=== PATIENT | male | born 1940 | race Caucasian/White ===

== ENCOUNTER 2019-12-17 23:24 | Inpatient (IN) ==
[2019-12-18] MEDS ORDERED: Naloxone 0.4 MG/ML INJ IVP PRN (01:36)
[2019-12-18] MEDS ORDERED: 0.9 % Sodium Chloride 1,000 ML IVC SCH ×2 (01:45→08:06)
[2019-12-18] MEDS ORDERED: *HR* Dextrose 50 % in Water (Vial) 50 ML VIAL IVP PRN (03:03)
[2019-12-18] MEDS ORDERED: D5% in Water 1,000 ML IVC PRN (03:03)
[2019-12-18] MEDS ORDERED: Dextrose Gel 15 GM/37.5 ML TUBE PO PRN ×2 (03:03)
[2019-12-18] MEDS ORDERED: Ondansetron 4 MG/2 ML VIAL IVP PRN (03:58)
[2019-12-18 05:54] LABS: Basophils % 0.2 %; Eosinophils % 0.3 %; Hematocrit 37.4 % (37.5-50.1); Lymphocytes # 1.3 K/mcL (0.6-4.6); Lymphocytes % 13.1 %; Mean Corpuscular HGB Conc 32.1 g/dL (31.6-35.5); Mean Corpuscular Hemoglobin 29.1 pg (28.0-33.3); Mean Corpuscular Volume 90.8 fL (83.0-100.0); Mean Platelet Volume 11.4 fL (9.4-12.4); Monocytes # 0.7 K/mcL (0.0-1.3); Monocytes % 6.5 %; Neutrophils # 7.9 K/mcL (1.6-8.9); Platelet Count 186 K/mcL (140-400); Red Blood Count 4.12 M/mcL (4.19-5.50); Red Cell Distribution Width 13.8 % (11.5-14.5); Segmented Neutrophils % 78.9 %
[2019-12-18 06:05] LABS: VBG Ionized Calcium 0.69 mmol/L (1.15-1.35)
[2019-12-18 06:08] LABS: INR 1.5; Prothrombin Time 16.9 Seconds (9.4-12.1)
[2019-12-18 06:10] LABS: Activated Partial Thrombo Time 28.5 Seconds (26.0-36.0)
[2019-12-18 06:21] LABS: Alanine Aminotransferase 14 Units/L (7-52); Albumin 3.7 g/dL (3.5-5.7); Albumin/Globulin Ratio 1.5 (1.1-2.2); Alkaline Phosphatase 66 Units/L (34-104); Aspartate Amino Transferase 18 Units/L (13-39); BUN/Creatinine Ratio 13 (6-26); Bilirubin,Total 0.5 mg/dL (0.3-1.0); Blood Urea Nitrogen 20 mg/dL (8-23); Calcium 5.9 mg/dL (8.6-10.3); Carbon Dioxide 26 mEq/L (23-29); Chloride 101 mEq/L (98-107); Globulin 2.5 g/dL (2.4-3.5); Glucose 138 mg/dL (70-105); Osmolality,Calculated 295 (280-300); Phosphorous 3.4 mg/dL (2.7-4.5); Potassium 3.1 mEq/L (3.5-5.1); Sodium 140 mEq/L (136-145); Total Protein 6.2 g/dL (6.4-8.9); eGFR For African Americans 55 (> 60); eGFR For Non-African Americans 45 (> 60)
[2019-12-18] MEDS ORDERED: Potassium Chloride Elixir 20 MEQ/15 ML UDC PO ONE (06:29)
[2019-12-18] MEDS ORDERED: *HR* Amiodarone 200 MG TABLET PO SCH (09:00)
[2019-12-18] MEDS: Metoprolol XL (24 HR) Succ 50 MG TAB.ER.24H PO SCH (09:05)
[2019-12-18] MEDS: Aspirin 81 MG TAB.CHEW PO SCH (09:08)
[2019-12-18] MEDS: Insulin LISPRO 300 UNITS/3 ML VIAL SQ SCH ×3 (09:09→17:19)
[2019-12-18] MEDS: Verapamil ER (24 HR) 180 MG TABLET.ER PO SCH (09:16)
[2019-12-18] MEDS: Calcium Gluconate 1gm/50mL 1 GM/50 ML BAG IVPB SCH ×4 (10:29→15:19)
[2019-12-18 11:23] LABS: Magnesium < 0.5 mg/dL (1.6-2.6)
[2019-12-18] MEDS ORDERED: Potassium Chloride Elixir 20 MEQ/15 ML UDC PO SCH (11:45)
[2019-12-18] MEDS: *HR* Rivaroxaban 10 MG TABLET PO SCH (17:19)
[2019-12-18 19:07] LABS: Calcium 7.1 mg/dL (8.6-10.3); Potassium 3.8 mEq/L (3.5-5.1)
[2019-12-19] MEDS: Calcium Gluconate 1gm/50mL 1 GM/50 ML BAG IVPB SCH ×2 (04:32→05:26)
[2019-12-19 06:17] LABS: Basophils % 0.2 %; Eosinophils # 0.1 K/mcL (0.0-0.6); Eosinophils % 1.2 %; Hematocrit 37.8 % (37.5-50.1); Hemoglobin 11.9 g/dL (12.9-16.9); Immature Granulocytes % 1.6 % (0-4); Lymphocytes # 1.3 K/mcL (0.6-4.6); Lymphocytes % 12.5 %; Mean Corpuscular HGB Conc 31.5 g/dL (31.6-35.5); Mean Corpuscular Hemoglobin 28.9 pg (28.0-33.3); Mean Corpuscular Volume 91.7 fL (83.0-100.0); Mean Platelet Volume 11.9 fL (9.4-12.4); Monocytes # 0.7 K/mcL (0.0-1.3); Monocytes % 6.7 %; Neutrophils # 8.1 K/mcL (1.6-8.9); Platelet Count 186 K/mcL (140-400); Red Blood Count 4.12 M/mcL (4.19-5.50); Red Cell Distribution Width 13.8 % (11.5-14.5); Segmented Neutrophils % 77.8 %; White Blood Count 10.4 K/mcL (4.3-11.1)
[2019-12-19 06:40] LABS: Calcium 6.9 mg/dL (8.6-10.3); Magnesium 1.6 mg/dL (1.6-2.6); Phosphorous 3.1 mg/dL (2.7-4.5)
[2019-12-19] MEDS: Verapamil ER (24 HR) 180 MG TABLET.ER PO SCH (07:46)
[2019-12-19] MEDS: Aspirin 81 MG TAB.CHEW PO SCH (07:46)
[2019-12-19] MEDS: Insulin LISPRO 300 UNITS/3 ML VIAL SQ SCH ×3 (07:46→17:28)
[2019-12-19] MEDS: Metoprolol XL (24 HR) Succ 50 MG TAB.ER.24H PO SCH (07:46)
[2019-12-19] MEDS: Magnesium Oxide 400 MG TABLET PO SCH (09:14)
[2019-12-19] MEDS ORDERED: GuaiFENesin/Pseudophedrine TABLET PO PRN (10:18)
[2019-12-19] MEDS: Ipratropium/Albuterol Neb 3 ML IH SCH ×4 (11:14→23:28)
[2019-12-19] MEDS: Doxycycline 100 MG CAPSULE PO SCH ×2 (11:24→20:48)
[2019-12-19] MEDS: Famotidine 20 MG TABLET PO SCH ×2 (11:24→17:28)
[2019-12-19] MEDS: cefTRIAXone 1,000 MG in Water for inj. (sterile) 10 ML IVP SCH (11:24)
[2019-12-19] MEDS: Spironolactone 25 MG TABLET PO SCH (11:24)
[2019-12-19] MEDS: Furosemide 40 MG TABLET PO SCH ×2 (15:26→20:49)
[2019-12-19] MEDS: *HR* Rivaroxaban 10 MG TABLET PO SCH (17:28)
[2019-12-20 03:22] LABS: Basophils % 0.4 %; Eosinophils # 0.1 K/mcL (0.0-0.6); Eosinophils % 0.9 %; Hematocrit 36.5 % (37.5-50.1); Hemoglobin 11.5 g/dL (12.9-16.9); Immature Granulocytes % 2.1 % (0-4); Lymphocytes % 9.1 %; Mean Corpuscular HGB Conc 31.5 g/dL (31.6-35.5); Mean Corpuscular Hemoglobin 28.7 pg (28.0-33.3); Mean Platelet Volume 11.3 fL (9.4-12.4); Monocytes # 0.9 K/mcL (0.0-1.3); Monocytes % 8.2 %; Platelet Count 182 K/mcL (140-400); Red Blood Count 4.01 M/mcL (4.19-5.50); Red Cell Distribution Width 13.7 % (11.5-14.5); Segmented Neutrophils % 79.3 %; White Blood Count 11.4 K/mcL (4.3-11.1)
[2019-12-20 03:39] LABS: Calcium 7.7 mg/dL (8.6-10.3); Magnesium 1.6 mg/dL (1.6-2.6); Phosphorous 2.2 mg/dL (2.7-4.5); Potassium 3.9 mEq/L (3.5-5.1)
[2019-12-20] MEDS: Ipratropium/Albuterol Neb 3 ML IH SCH ×6 (03:45→20:47)
[2019-12-20] MEDS: Verapamil ER (24 HR) 180 MG TABLET.ER PO SCH (07:32)
[2019-12-20] MEDS: Furosemide 40 MG TABLET PO SCH ×3 (07:33→20:07)
[2019-12-20] MEDS: Doxycycline 100 MG CAPSULE PO SCH ×2 (07:33→20:07)
[2019-12-20] MEDS: Spironolactone 25 MG TABLET PO SCH (07:33)
[2019-12-20] MEDS: Magnesium Oxide 400 MG TABLET PO SCH (07:33)
[2019-12-20] MEDS: Aspirin 81 MG TAB.CHEW PO SCH (07:33)
[2019-12-20] MEDS: Metoprolol XL (24 HR) Succ 50 MG TAB.ER.24H PO SCH (07:33)
[2019-12-20] MEDS: Famotidine 20 MG TABLET PO SCH ×2 (07:33→16:14)
[2019-12-20] MEDS: cefTRIAXone 1,000 MG in Water for inj. (sterile) 10 ML IVP SCH (07:34)
[2019-12-20] MEDS: Insulin LISPRO 300 UNITS/3 ML VIAL SQ SCH ×3 (07:35→16:12)
[2019-12-20 15:13] LABS: Adenovirus Not Detected (Not Detect); Bordetella Pertussis Not Detected (Not Detect); Chlamydophila pneumoniae Not Detected (Not Detect); Coronavirus 229E Not Detected (Not Detect); Coronavirus HKU1 Not Detected (Not Detect); Coronavirus NL63 Not Detected (Not Detect); Coronavirus OC43 Not Detected (Not Detect); Human Metapneumovirus Not Detected (Not Detect); Human Rhinovirus/Enterovirus Not Detected (Not Detect); Influenza A Subtype 2009 H1 Not Detected (Not Detect); Influenza B Not Detected (Not Detect); Mycoplasma pneumoniae Not Detected (Not Detect); Parainfluenza Virus 1 Not Detected (Not Detect); Parainfluenza Virus 2 Not Detected (Not Detect); Parainfluenza Virus 3 Not Detected (Not Detect); Parainfluenza Virus 4 Not Detected (Not Detect); Respiratory Syncytial Virus Not Detected (Not Detect); SARS-CoV-2 Not Detected (Not Detect)
[2019-12-20] MEDS: *HR* Rivaroxaban 10 MG TABLET PO SCH (16:11)
[2019-12-21] MEDS: Ipratropium/Albuterol Neb 3 ML IH SCH ×4 (03:49→16:03)
[2019-12-21 06:59] LABS: Basophils # 0.1 K/mcL (0.0-0.2); Basophils % 0.5 %; Eosinophils # 0.1 K/mcL (0.0-0.6); Eosinophils % 1.2 %; Hematocrit 37.7 % (37.5-50.1); Hemoglobin 11.6 g/dL (12.9-16.9); Immature Granulocytes % 1.7 % (0-4); Lymphocytes # 0.9 K/mcL (0.6-4.6); Lymphocytes % 9.5 %; Mean Corpuscular HGB Conc 30.8 g/dL (31.6-35.5); Mean Corpuscular Hemoglobin 28.6 pg (28.0-33.3); Mean Corpuscular Volume 92.9 fL (83.0-100.0); Mean Platelet Volume 11.5 fL (9.4-12.4); Monocytes % 9.8 %; Neutrophils # 7.6 K/mcL (1.6-8.9); Platelet Count 166 K/mcL (140-400); Red Blood Count 4.06 M/mcL (4.19-5.50); Red Cell Distribution Width 14.2 % (11.5-14.5); Segmented Neutrophils % 77.3 %; White Blood Count 9.8 K/mcL (4.3-11.1)
[2019-12-21 07:21] LABS: BUN/Creatinine Ratio 16 (6-26); Blood Urea Nitrogen 22 mg/dL (8-23); Calcium 8.5 mg/dL (8.6-10.3); Carbon Dioxide 24 mEq/L (23-29); Chloride 100 mEq/L (98-107); Glucose 148 mg/dL (70-105); Magnesium 1.9 mg/dL (1.6-2.6); Osmolality,Calculated 284 (280-300); Phosphorous 2.2 mg/dL (2.7-4.5); Potassium 3.9 mEq/L (3.5-5.1); Sodium 134 mEq/L (136-145); eGFR For African Americans > 60 (> 60); eGFR For Non-African Americans 52 (> 60)
[2019-12-21] MEDS: Insulin LISPRO 300 UNITS/3 ML VIAL SQ SCH ×2 (08:03→12:49)
[2019-12-21] MEDS: cefTRIAXone 1,000 MG in Water for inj. (sterile) 10 ML IVP SCH (08:03)
[2019-12-21] MEDS: Doxycycline 100 MG CAPSULE PO SCH (08:04)
[2019-12-21] MEDS: Famotidine 20 MG TABLET PO SCH ×2 (08:04→15:34)
[2019-12-21] MEDS: Furosemide 40 MG TABLET PO SCH ×2 (08:04→15:33)
[2019-12-21] MEDS: Verapamil ER (24 HR) 180 MG TABLET.ER PO SCH (08:04)
[2019-12-21] MEDS: Metoprolol XL (24 HR) Succ 50 MG TAB.ER.24H PO SCH (08:04)
[2019-12-21] MEDS: Spironolactone 25 MG TABLET PO SCH (08:04)
[2019-12-21] MEDS: Aspirin 81 MG TAB.CHEW PO SCH (08:04)
[2019-12-21] MEDS: Magnesium Oxide 400 MG TABLET PO SCH (08:04)
[2019-12-21] MEDS ORDERED: FLU Vac QV 20-21 (6Month+)/PF 0.5 ML SYRINGE IM ONE (09:16)
[2019-12-21 10:38] VITALS: BP 115/71
[2019-12-21] MEDS: *HR* Rivaroxaban 10 MG TABLET PO SCH (15:33)
== END 2019-12-21 17:21 | DRG 391 ==
LOC: 3ANU → SUATTDRO 12-18 14:35
PROVIDERS: ADMIT Student in an Organized Health Care Education/Training Program; ATTEND Internal Medicine

== ENCOUNTER 2020-12-31 16:54 | Inpatient (IN) ==
[2020-12-31] MEDS ORDERED: Naloxone 0.4 MG/ML INJ IVP PRN (19:47)
[2020-12-31] MEDS ORDERED: Ondansetron 4 MG/2 ML VIAL IVP PRN (19:47)
[2020-12-31] MEDS ORDERED: MOM Conc 10 ML UD.LIQ PO PRN (19:47)
[2020-12-31] MEDS ORDERED: Furosemide 40 MG/4 ML VIAL IVP SCH (22:15)
[2020-12-31] MEDS ORDERED: Perflutren Lipid Microsphere 1.3 ML in 0.9 % Sodium Chloride 8.7 ML IVP PRN (22:17)
[2020-12-31] MEDS ORDERED: Ipratropium/Albuterol Neb 3 ML IH PRN (22:17)
[2020-12-31] MEDS ORDERED: *HR* Heparin 5,000 UNIT/ML VIAL IVP ONE (22:21)
[2020-12-31] MEDS ORDERED: *HR* Heparin 5,000 UNIT/ML VIAL IVP PRN ×2 (22:21)
[2020-12-31] MEDS ORDERED: Heparin 25,000UNIT/250ML 1/2NS 25,000 UNIT/250 ML IV.SOLN IVC SCH (22:30)
[2020-12-31] MEDS ORDERED: *HR* Dextrose 50 % in Water (Syg) 50 ML SYRINGE IVP PRN (22:49)
[2020-12-31] MEDS ORDERED: D5% in Water 1,000 ML IVC PRN (22:49)
[2020-12-31] MEDS ORDERED: Dextrose Gel 15 GM/37.5 ML TUBE PO PRN ×2 (22:49)
[2020-12-31] MEDS ORDERED: Heparin 25,000 UNIT/250 ML 25,000 UNIT/250 ML IV.SOLN IVC SCH (23:00)
[2020-12-31] MEDS ORDERED: *HR* Metoprolol 5 MG/5 ML VIAL IVP ONE ×2 (23:10→23:11)
[2021-01-01] MEDS: Nystatin Cream 15 GM TUBE TP SCH ×3 (01:08→19:45)
[2021-01-01] MEDS ORDERED: *HR* Metoprolol 5 MG/5 ML VIAL IVP ONE (01:09)
[2021-01-01] MEDS: *HR* Metoprolol 5 MG/5 ML VIAL IVP PRN (02:22)
[2021-01-01 02:46] LABS: Bilirubin,Urine Negative (Negative); Blood,Urine Trace (Negative); Clarity,Urine Clear (Clear); Color,Urine Colorless (Yellow); Glucose,Urine (UA) >=1000 mg/dL (Normal); Ketones,Urine Negative (Negative); Leukocyte Esterase,Urine Large (Negative); Nitrite,Urine Negative (Negative); Protein,Urine Trace mg/dL (Neg-Trace); RBC,Urine 0-3 per hpf (0-3); Specific Gravity,Urine 1.016 (1.010-1.025); Urobilinogen,Urine Normal (Normal); WBC,Urine TNTC per hpf (0-3)
[2021-01-01] MEDS ORDERED: 0.9 % Sodium Chloride 500 ML IVC ONE (03:21)
[2021-01-01] MEDS: DilTIAZem 50 MG/50 ML IV.SOLN IVC SCH (04:36)
[2021-01-01] MEDS ORDERED: 0.9 % Sodium Chloride 1,000 ML IVC SCH (05:30)
[2021-01-01 07:05] LABS: Hematocrit 36.9 % (37.5-50.1); Hemoglobin 10.9 g/dL (12.9-16.9); Mean Corpuscular HGB Conc 29.5 g/dL (31.6-35.5); Mean Corpuscular Hemoglobin 23.3 pg (28.0-33.3); Mean Corpuscular Volume 78.8 fL (83.0-100.0); Mean Platelet Volume 10.7 fL (9.4-12.4); Platelet Count 260 K/mcL (140-400); Red Blood Count 4.68 M/mcL (4.19-5.50); Red Cell Distribution Width 16.7 % (11.5-14.5); White Blood Count 11.1 K/mcL (4.3-11.1)
[2021-01-01 07:27] LABS: Calcium 8.6 mg/dL (8.6-10.3); Magnesium 2.1 mg/dL (1.6-2.6); Phosphorous 3.5 mg/dL (2.7-4.5); Potassium 3.7 mEq/L (3.5-5.1)
[2021-01-01] MEDS: Insulin LISPRO 300 UNITS/3 ML VIAL SUBQ SCH ×3 (09:42→16:51)
[2021-01-01] MEDS: Aspirin 81 MG TAB.CHEW PO SCH (09:42)
[2021-01-01] MEDS ORDERED: *HR* Rivaroxaban 10 MG TABLET PO ONE (12:15)
[2021-01-01] MEDS: Metoprolol XL (24 HR) Succ 50 MG TAB.ER.24H PO SCH ×2 (12:34→19:44)
[2021-01-01] MEDS: Levalbuterol Neb 0.63 MG/3 ML IH SCH ×2 (16:16→19:59)
[2021-01-02] MEDS: DilTIAZem 50 MG/50 ML IV.SOLN IVC SCH ×2 (00:37→05:54)
[2021-01-02] MEDS: *HR* Metoprolol 5 MG/5 ML VIAL IVP PRN ×2 (02:00→22:18)
[2021-01-02] MEDS: Levalbuterol Neb 0.63 MG/3 ML IH SCH ×4 (03:24→21:15)
[2021-01-02] MEDS: Acetaminophen 325 MG TABLET PO PRN (04:07)
[2021-01-02 05:30] LABS: Hematocrit 38.7 % (37.5-50.1); Hemoglobin 11.3 g/dL (12.9-16.9); Mean Corpuscular HGB Conc 29.2 g/dL (31.6-35.5); Mean Corpuscular Hemoglobin 23.2 pg (28.0-33.3); Mean Corpuscular Volume 79.5 fL (83.0-100.0); Mean Platelet Volume 11.1 fL (9.4-12.4); Platelet Count 272 K/mcL (140-400); Red Blood Count 4.87 M/mcL (4.19-5.50); Red Cell Distribution Width 16.8 % (11.5-14.5); White Blood Count 12.3 K/mcL (4.3-11.1)
[2021-01-02 05:46] LABS: Calcium 9.3 mg/dL (8.6-10.3); Magnesium 2.3 mg/dL (1.6-2.6); Phosphorous 3.9 mg/dL (2.7-4.5); Potassium 4.1 mEq/L (3.5-5.1)
[2021-01-02] MEDS: Insulin LISPRO 300 UNITS/3 ML VIAL SUBQ SCH ×3 (08:31→17:46)
[2021-01-02] MEDS: Budesonide Neb 0.25 MG/2 ML IH SCH ×2 (08:42→21:15)
[2021-01-02] MEDS: Metoprolol XL (24 HR) Succ 50 MG TAB.ER.24H PO SCH ×2 (08:43→20:44)
[2021-01-02] MEDS: Aspirin 81 MG TAB.CHEW PO SCH (08:43)
[2021-01-02] MEDS: Cholecalciferol (D-3) 1,000 UNIT (25MCG) TABLET PO SCH (08:43)
[2021-01-02] MEDS: Magnesium Oxide 400 MG TABLET PO SCH (08:44)
[2021-01-02] MEDS: *HR* Rivaroxaban 15 MG TABLET PO SCH (08:47)
[2021-01-02] MEDS: Furosemide 40 MG/4 ML VIAL IVP SCH ×2 (08:50→17:50)
[2021-01-02] MEDS ORDERED: DilTIAZem CD (24hr) 180 MG CAP.ER.24H PO SCH (09:00)
[2021-01-02] MEDS: Nystatin Cream 15 GM TUBE TP SCH ×2 (11:04→20:44)
[2021-01-02] MEDS: MethylPREDNISolone 40 MG/ML VIAL IVP SCH (11:04)
[2021-01-02] MEDS: Metoprolol XL (24 HR) Succ 50 MG TAB.ER.24H PO ONE (13:41)
[2021-01-02] MEDS ORDERED: *HR* Rivaroxaban 10 MG TABLET PO SCH (17:00)
[2021-01-02] MEDS ORDERED: *HR* Metoprolol 5 MG/5 ML VIAL IVP ONE (23:28)
[2021-01-03] MEDS: Levalbuterol Neb 0.63 MG/3 ML IH SCH ×2 (03:32→08:21)
[2021-01-03 05:43] LABS: Hematocrit 37.2 % (37.5-50.1); Mean Corpuscular HGB Conc 29.6 g/dL (31.6-35.5); Mean Corpuscular Hemoglobin 23.2 pg (28.0-33.3); Mean Corpuscular Volume 78.5 fL (83.0-100.0); Mean Platelet Volume 10.9 fL (9.4-12.4); Platelet Count 299 K/mcL (140-400); Red Blood Count 4.74 M/mcL (4.19-5.50); Red Cell Distribution Width 16.8 % (11.5-14.5); White Blood Count 10.6 K/mcL (4.3-11.1)
[2021-01-03 05:54] LABS: Calcium 8.9 mg/dL (8.6-10.3); Potassium 4.4 mEq/L (3.5-5.1)
[2021-01-03] MEDS: *HR* Rivaroxaban 15 MG TABLET PO SCH (07:56)
[2021-01-03] MEDS: Magnesium Oxide 400 MG TABLET PO SCH (07:56)
[2021-01-03] MEDS: Cholecalciferol (D-3) 1,000 UNIT (25MCG) TABLET PO SCH (07:56)
[2021-01-03] MEDS: Aspirin 81 MG TAB.CHEW PO SCH (07:56)
[2021-01-03] MEDS: Metoprolol XL (24 HR) Succ 50 MG TAB.ER.24H PO SCH ×2 (07:56→20:29)
[2021-01-03] MEDS: MethylPREDNISolone 40 MG/ML VIAL IVP SCH (07:56)
[2021-01-03] MEDS: Insulin LISPRO 300 UNITS/3 ML VIAL SUBQ SCH ×3 (07:57→17:18)
[2021-01-03] MEDS: Nystatin Cream 15 GM TUBE TP SCH ×2 (07:58→20:30)
[2021-01-03] MEDS: Budesonide Neb 0.25 MG/2 ML IH SCH ×2 (08:21→20:56)
[2021-01-03] MEDS: Furosemide 40 MG TABLET PO SCH ×2 (10:47→17:18)
[2021-01-03] MEDS: *HR* Metoprolol 5 MG/5 ML VIAL IVP PRN (10:47)
[2021-01-03] MEDS ORDERED: Furosemide 40 MG/4 ML VIAL IVP ONE (11:00)
[2021-01-03] MEDS ORDERED: Amiodarone Premix 150 MG/100 ML BAG IVPB ONE (11:03)
[2021-01-03] MEDS ORDERED: Amiodarone Premix 360 MG/200 ML BAG IVC ONE ×2 (11:03→20:25)
[2021-01-03] MEDS: Amiodarone Premix 360 MG/200 ML BAG IVC SCH (20:29)
[2021-01-04 03:17] LABS: Hematocrit 36.8 % (37.5-50.1); Hemoglobin 10.8 g/dL (12.9-16.9); Mean Corpuscular HGB Conc 29.3 g/dL (31.6-35.5); Mean Corpuscular Hemoglobin 23.2 pg (28.0-33.3); Mean Platelet Volume 11.1 fL (9.4-12.4); Platelet Count 290 K/mcL (140-400); Red Blood Count 4.66 M/mcL (4.19-5.50); Red Cell Distribution Width 16.9 % (11.5-14.5); White Blood Count 12.5 K/mcL (4.3-11.1)
[2021-01-04 03:53] LABS: Calcium 8.6 mg/dL (8.6-10.3); Potassium 4.3 mEq/L (3.5-5.1)
[2021-01-04] MEDS: *HR* Rivaroxaban 15 MG TABLET PO SCH (07:58)
[2021-01-04] MEDS: Furosemide 40 MG TABLET PO SCH (07:58)
[2021-01-04] MEDS: Cholecalciferol (D-3) 1,000 UNIT (25MCG) TABLET PO SCH (07:59)
[2021-01-04] MEDS: Magnesium Oxide 400 MG TABLET PO SCH (07:59)
[2021-01-04] MEDS: Aspirin 81 MG TAB.CHEW PO SCH (07:59)
[2021-01-04] MEDS: Metoprolol XL (24 HR) Succ 50 MG TAB.ER.24H PO SCH ×2 (07:59→20:15)
[2021-01-04] MEDS: Insulin LISPRO 300 UNITS/3 ML VIAL SUBQ SCH ×3 (07:59→17:41)
[2021-01-04] MEDS: predniSONE 20 MG TABLET PO SCH (07:59)
[2021-01-04] MEDS: Nystatin Cream 15 GM TUBE TP SCH ×2 (08:00→20:20)
[2021-01-04] MEDS: Amiodarone Premix 360 MG/200 ML BAG IVC SCH ×2 (08:37→20:19)
[2021-01-04] MEDS ORDERED: Piperacillin/Tazobactam 3.375 GM in 0.9 % Sodium Chloride Mini Bag 100 ML IVPB SCH (09:10)
[2021-01-04] MEDS ORDERED: Metoprolol XL (24 HR) Succ 50 MG TAB.ER.24H PO ONE (09:21)
[2021-01-04] MEDS: Budesonide Neb 0.25 MG/2 ML IH SCH ×2 (09:45→20:28)
[2021-01-04] MEDS: Ipratropium Neb 0.5 MG NEBULIZER IH SCH ×3 (11:46→20:28)
[2021-01-04] MEDS: Isosorbide MONOnitrate (24 HR) 30 MG TAB.ER.24H PO SCH (12:17)
[2021-01-04] MEDS: Metoprolol XL (24 HR) Succ 50 MG TAB.ER.24H PO ONE (12:18)
[2021-01-04] MEDS: Piperacillin/Tazobactam 3.375 GM in 0.9 % Sodium Chloride Mini Bag 100 ML IVPB SCH ×2 (12:41→20:15)
[2021-01-04] MEDS ORDERED: Metoprolol XL (24 HR) Succ 50 MG TAB.ER.24H PO SCH (21:00)
[2021-01-05 01:47] LABS: Hematocrit 35.8 % (37.5-50.1); Hemoglobin 10.6 g/dL (12.9-16.9); Mean Corpuscular HGB Conc 29.6 g/dL (31.6-35.5); Mean Corpuscular Hemoglobin 23.3 pg (28.0-33.3); Mean Corpuscular Volume 78.9 fL (83.0-100.0); Mean Platelet Volume 10.9 fL (9.4-12.4); Platelet Count 295 K/mcL (140-400); Red Blood Count 4.54 M/mcL (4.19-5.50); Red Cell Distribution Width 16.9 % (11.5-14.5); White Blood Count 13.3 K/mcL (4.3-11.1)
[2021-01-05 01:56] LABS: INR 1.8; Prothrombin Time 19.6 Seconds (9.4-12.1)
[2021-01-05 01:57] LABS: BUN/Creatinine Ratio 25 (6-26); Blood Urea Nitrogen 58 mg/dL (8-23); Calcium 8.8 mg/dL (8.6-10.3); Carbon Dioxide 25 mEq/L (23-29); Chloride 98 mEq/L (98-107); Glucose 240 mg/dL (70-105); Lactate Dehydrogenase 164 Units/L (140-271); Osmolality,Calculated 304 (280-300); Potassium 4.4 mEq/L (3.5-5.1); Sodium 135 mEq/L (136-145); Total Protein 6.3 g/dL (6.4-8.9); eGFR For African Americans 34 (> 60); eGFR For Non-African Americans 28 (> 60)
[2021-01-05] MEDS: Ipratropium Neb 0.5 MG NEBULIZER IH SCH ×4 (04:18→22:37)
[2021-01-05] MEDS: Piperacillin/Tazobactam 3.375 GM in 0.9 % Sodium Chloride Mini Bag 100 ML IVPB SCH ×3 (05:31→21:00)
[2021-01-05] MEDS: Isosorbide MONOnitrate (24 HR) 30 MG TAB.ER.24H PO SCH (08:06)
[2021-01-05] MEDS: Aspirin 81 MG TAB.CHEW PO SCH (08:06)
[2021-01-05] MEDS: Cholecalciferol (D-3) 1,000 UNIT (25MCG) TABLET PO SCH (08:06)
[2021-01-05] MEDS: predniSONE 20 MG TABLET PO SCH (08:06)
[2021-01-05] MEDS: Magnesium Oxide 400 MG TABLET PO SCH (08:06)
[2021-01-05] MEDS: Metoprolol XL (24 HR) Succ 50 MG TAB.ER.24H PO SCH ×2 (08:06→19:52)
[2021-01-05] MEDS: Insulin LISPRO 300 UNITS/3 ML VIAL SUBQ SCH ×4 (08:12→19:55)
[2021-01-05] MEDS: Nystatin Cream 15 GM TUBE TP SCH ×2 (08:13→19:54)
[2021-01-05] MEDS: Budesonide Neb 0.25 MG/2 ML IH SCH ×2 (09:59→22:37)
[2021-01-05] MEDS: *HR* Metoprolol 5 MG/5 ML VIAL IVP PRN (10:13)
[2021-01-05] MEDS: Amiodarone Premix 360 MG/200 ML BAG IVC SCH (10:58)
[2021-01-05] MEDS ORDERED: Metoprolol XL (24 HR) Succ 50 MG TAB.ER.24H PO ONE (12:30)
[2021-01-05 15:40] LABS: RBC,Pleural Fluid 4000 RBC/mcL
[2021-01-05 16:32] LABS: Total Protein,Pleural Fluid 2.5 g/dL
[2021-01-05 16:45] LABS: Appearance of Pleural Fl Hazy (Clear)
[2021-01-05] MEDS: *HR* Rivaroxaban 15 MG TABLET PO SCH (16:51)
[2021-01-05 17:04] LABS: Basophils,Pleural Fluid 0 %
[2021-01-05] MEDS ORDERED: Albumin 25% 25gram/100mL 25 GM/100 ML IV.SOLN IVPB ONE (17:26)
[2021-01-05] MEDS: Doxycycline 100 MG CAPSULE PO SCH (19:54)
[2021-01-06] MEDS: Ipratropium Neb 0.5 MG NEBULIZER IH SCH ×4 (03:43→22:22)
[2021-01-06] MEDS: Piperacillin/Tazobactam 3.375 GM in 0.9 % Sodium Chloride Mini Bag 100 ML IVPB SCH ×3 (05:40→20:36)
[2021-01-06] MEDS: Metoprolol XL (24 HR) Succ 50 MG TAB.ER.24H PO SCH ×2 (07:29→20:36)
[2021-01-06] MEDS: Magnesium Oxide 400 MG TABLET PO SCH (07:30)
[2021-01-06] MEDS: Doxycycline 100 MG CAPSULE PO SCH ×2 (07:30→20:34)
[2021-01-06] MEDS: Nystatin Cream 15 GM TUBE TP SCH ×2 (07:30→20:35)
[2021-01-06] MEDS: Isosorbide MONOnitrate (24 HR) 30 MG TAB.ER.24H PO SCH (07:30)
[2021-01-06] MEDS: Cholecalciferol (D-3) 1,000 UNIT (25MCG) TABLET PO SCH (07:30)
[2021-01-06] MEDS: Aspirin 81 MG TAB.CHEW PO SCH (07:30)
[2021-01-06] MEDS: predniSONE 20 MG TABLET PO SCH (07:30)
[2021-01-06] MEDS: Insulin LISPRO 300 UNITS/3 ML VIAL SUBQ SCH ×4 (07:33→20:48)
[2021-01-06] MEDS: Budesonide Neb 0.25 MG/2 ML IH SCH ×2 (07:57→22:22)
[2021-01-06] MEDS: Insulin DETEMIR 100 UNIT/ML X5UNITS SUBQ SCH ×2 (08:43→20:54)
[2021-01-06] MEDS: *HR* Amiodarone 200 MG TABLET PO SCH ×2 (10:51→20:33)
[2021-01-06] MEDS: *HR* Metoprolol 5 MG/5 ML VIAL IVP PRN (15:11)
[2021-01-06 16:11] LABS: Hematocrit 37.8 % (37.5-50.1); Mean Corpuscular HGB Conc 29.1 g/dL (31.6-35.5); Mean Corpuscular Hemoglobin 22.8 pg (28.0-33.3); Mean Corpuscular Volume 78.3 fL (83.0-100.0); Mean Platelet Volume 11.1 fL (9.4-12.4); Platelet Count 290 K/mcL (140-400); Red Blood Count 4.83 M/mcL (4.19-5.50); Red Cell Distribution Width 16.9 % (11.5-14.5); White Blood Count 10.6 K/mcL (4.3-11.1)
[2021-01-06 16:35] LABS: Estimated Average Glucose 200 mg/dl; Hemoglobin A1C 8.6 %
[2021-01-06] MEDS: hydrALAZINE 25 MG TABLET PO SCH (16:49)
[2021-01-06] MEDS: *HR* Rivaroxaban 15 MG TABLET PO SCH (16:50)
[2021-01-06 16:55] LABS: Folate 19.2 ng/mL (3.0-16.0)
[2021-01-06 17:00] LABS: Albumin 3.6 g/dL (3.5-5.7); Albumin/Globulin Ratio 1.4 (1.1-2.2); Bilirubin,Direct 0.2 mg/dL (0.0-0.2); Bilirubin,Indirect 0.3 mg/dL (0.0-1.0); Bilirubin,Total 0.5 mg/dL (0.3-1.0); Calcium 8.6 mg/dL (8.6-10.3); Globulin 2.6 g/dL (2.4-3.5); Potassium 4.6 mEq/L (3.5-5.1); Total Protein 6.2 g/dL (6.4-8.9)
[2021-01-06] MEDS: Melatonin 3 MG TABLET PO PRN (20:33)
[2021-01-07] MEDS: hydrALAZINE 25 MG TABLET PO SCH ×3 (00:05→16:56)
[2021-01-07] MEDS: Ipratropium Neb 0.5 MG NEBULIZER IH SCH ×4 (04:15→20:06)
[2021-01-07] MEDS: Piperacillin/Tazobactam 3.375 GM in 0.9 % Sodium Chloride Mini Bag 100 ML IVPB SCH ×3 (05:00→21:47)
[2021-01-07] MEDS: Metoprolol XL (24 HR) Succ 50 MG TAB.ER.24H PO SCH ×2 (08:00→21:50)
[2021-01-07] MEDS: Cholecalciferol (D-3) 1,000 UNIT (25MCG) TABLET PO SCH (08:00)
[2021-01-07] MEDS: Aspirin 81 MG TAB.CHEW PO SCH (08:01)
[2021-01-07] MEDS: *HR* Amiodarone 200 MG TABLET PO SCH ×2 (08:01→21:48)
[2021-01-07] MEDS: predniSONE 20 MG TABLET PO SCH (08:01)
[2021-01-07] MEDS: Isosorbide MONOnitrate (24 HR) 30 MG TAB.ER.24H PO SCH (08:01)
[2021-01-07] MEDS: Magnesium Oxide 400 MG TABLET PO SCH (08:02)
[2021-01-07] MEDS: Insulin DETEMIR 100 UNIT/ML X5UNITS SUBQ SCH ×2 (08:02→21:49)
[2021-01-07] MEDS: Doxycycline 100 MG CAPSULE PO SCH ×2 (08:02→21:48)
[2021-01-07] MEDS: Nystatin Cream 15 GM TUBE TP SCH ×2 (08:03→21:50)
[2021-01-07] MEDS: Insulin LISPRO 300 UNITS/3 ML VIAL SUBQ SCH ×4 (08:04→21:49)
[2021-01-07] MEDS ORDERED: Budesonide Neb 0.5 MG/2 ML IH ONE (09:47)
[2021-01-07] MEDS: Budesonide Neb 0.25 MG/2 ML IH SCH ×2 (09:58→20:06)
[2021-01-07] MEDS: Furosemide 20 MG TABLET PO SCH (11:34)
[2021-01-07] MEDS ORDERED: *HR* Digoxin 0.5 MG/2 ML AMPUL IVP ONE (13:14)
[2021-01-07 15:19] LABS: Calcium 8.8 mg/dL (8.6-10.3); Potassium 4.7 mEq/L (3.5-5.1)
[2021-01-07] MEDS: *HR* Rivaroxaban 15 MG TABLET PO SCH (16:56)
[2021-01-07] MEDS ORDERED: *HR* Digoxin 0.5 MG/2 ML AMPUL IVP SCH (18:00)
[2021-01-07] MEDS: Acetaminophen 325 MG TABLET PO PRN (21:48)
[2021-01-07] MEDS: Melatonin 3 MG TABLET PO PRN (21:48)
[2021-01-07] MEDS: *HR* Digoxin 0.5 MG/2 ML AMPUL IVP SCH (21:53)
[2021-01-08] MEDS: hydrALAZINE 25 MG TABLET PO SCH ×3 (00:56→16:35)
[2021-01-08] MEDS: *HR* Digoxin 0.5 MG/2 ML AMPUL IVP SCH (00:56)
[2021-01-08] MEDS: Ipratropium Neb 0.5 MG NEBULIZER IH SCH ×4 (03:37→21:54)
[2021-01-08 04:06] LABS: Basophils % 0.1 %; Eosinophils % 0.1 %; Hemoglobin 10.6 g/dL (12.9-16.9); Immature Granulocytes % 1.2 % (0-4); Lymphocytes # 0.9 K/mcL (0.6-4.6); Lymphocytes % 8.6 %; Mean Corpuscular HGB Conc 29.4 g/dL (31.6-35.5); Mean Corpuscular Hemoglobin 23.2 pg (28.0-33.3); Mean Corpuscular Volume 78.9 fL (83.0-100.0); Mean Platelet Volume 10.8 fL (9.4-12.4); Monocytes # 0.7 K/mcL (0.0-1.3); Monocytes % 6.6 %; Neutrophils # 9.1 K/mcL (1.6-8.9); Nucleated Red Blood Cells 0.6 /100 WBC (0); Platelet Count 276 K/mcL (140-400); Red Blood Count 4.56 M/mcL (4.19-5.50); Red Cell Distribution Width 16.6 % (11.5-14.5); Segmented Neutrophils % 83.4 %; White Blood Count 10.9 K/mcL (4.3-11.1)
[2021-01-08 04:28] LABS: Calcium 8.5 mg/dL (8.6-10.3); Potassium 4.3 mEq/L (3.5-5.1)
[2021-01-08] MEDS: Piperacillin/Tazobactam 3.375 GM in 0.9 % Sodium Chloride Mini Bag 100 ML IVPB SCH ×3 (05:30→21:17)
[2021-01-08] MEDS: Aspirin 81 MG TAB.CHEW PO SCH (08:40)
[2021-01-08] MEDS: Metoprolol XL (24 HR) Succ 50 MG TAB.ER.24H PO SCH ×2 (08:41→21:16)
[2021-01-08] MEDS: Isosorbide MONOnitrate (24 HR) 30 MG TAB.ER.24H PO SCH (08:42)
[2021-01-08] MEDS: Furosemide 20 MG TABLET PO SCH (08:42)
[2021-01-08] MEDS: *HR* Amiodarone 200 MG TABLET PO SCH ×2 (08:42→21:16)
[2021-01-08] MEDS: Doxycycline 100 MG CAPSULE PO SCH ×2 (08:43→21:16)
[2021-01-08] MEDS: predniSONE 20 MG TABLET PO SCH (08:43)
[2021-01-08] MEDS: Cholecalciferol (D-3) 1,000 UNIT (25MCG) TABLET PO SCH (08:43)
[2021-01-08] MEDS: Magnesium Oxide 400 MG TABLET PO SCH (08:48)
[2021-01-08] MEDS: Nystatin Cream 15 GM TUBE TP SCH ×2 (08:48→21:18)
[2021-01-08] MEDS: Insulin LISPRO 300 UNITS/3 ML VIAL SUBQ SCH ×4 (08:49→21:18)
[2021-01-08] MEDS: Insulin DETEMIR 100 UNIT/ML X5UNITS SUBQ SCH ×2 (08:55→21:17)
[2021-01-08] MEDS: Budesonide Neb 0.25 MG/2 ML IH SCH ×2 (10:06→21:54)
[2021-01-08] MEDS: Furosemide 40 MG TABLET PO SCH (10:35)
[2021-01-08 11:58] LABS: Cholesterol,Body Fluid 33 mg/dL; Fluid Source for Cholesterol PLEURAL FLUID
[2021-01-08] MEDS ORDERED: Furosemide 20 MG TABLET PO ONE (12:30)
[2021-01-08] MEDS: *HR* Rivaroxaban 15 MG TABLET PO SCH (16:35)
[2021-01-08] MEDS: Acetaminophen 325 MG TABLET PO PRN (21:16)
[2021-01-09] MEDS: hydrALAZINE 25 MG TABLET PO SCH ×3 (00:14→18:05)
[2021-01-09] MEDS: Ipratropium Neb 0.5 MG NEBULIZER IH SCH ×4 (04:26→19:51)
[2021-01-09] MEDS: Piperacillin/Tazobactam 3.375 GM in 0.9 % Sodium Chloride Mini Bag 100 ML IVPB SCH ×3 (05:05→20:39)
[2021-01-09 06:24] LABS: Calcium 8.6 mg/dL (8.6-10.3); Potassium 4.5 mEq/L (3.5-5.1)
[2021-01-09] MEDS: Insulin LISPRO 300 UNITS/3 ML VIAL SUBQ SCH ×4 (08:34→20:38)
[2021-01-09] MEDS: *HR* Amiodarone 200 MG TABLET PO SCH ×2 (08:35→20:39)
[2021-01-09] MEDS: Metoprolol XL (24 HR) Succ 50 MG TAB.ER.24H PO SCH ×2 (08:35→20:39)
[2021-01-09] MEDS: Aspirin 81 MG TAB.CHEW PO SCH (08:35)
[2021-01-09] MEDS: Doxycycline 100 MG CAPSULE PO SCH ×2 (08:35→20:38)
[2021-01-09] MEDS: Cholecalciferol (D-3) 1,000 UNIT (25MCG) TABLET PO SCH (08:35)
[2021-01-09] MEDS: Magnesium Oxide 400 MG TABLET PO SCH (08:35)
[2021-01-09] MEDS: Furosemide 40 MG TABLET PO SCH ×2 (08:36→20:38)
[2021-01-09] MEDS: Insulin DETEMIR 100 UNIT/ML X5UNITS SUBQ SCH ×2 (08:37→20:38)
[2021-01-09] MEDS: Isosorbide MONOnitrate (24 HR) 30 MG TAB.ER.24H PO SCH (08:38)
[2021-01-09] MEDS: Nystatin Cream 15 GM TUBE TP SCH ×2 (08:39→20:39)
[2021-01-09] MEDS: Budesonide Neb 0.25 MG/2 ML IH SCH ×2 (11:09→19:51)
[2021-01-09] MEDS: *HR* Rivaroxaban 15 MG TABLET PO SCH (18:05)
[2021-01-09] MEDS: Melatonin 3 MG TABLET PO PRN (20:39)
[2021-01-09] MEDS: Acetaminophen 325 MG TABLET PO PRN (20:39)
[2021-01-10] MEDS: hydrALAZINE 25 MG TABLET PO SCH ×4 (00:12→23:48)
[2021-01-10] MEDS: Ipratropium Neb 0.5 MG NEBULIZER IH SCH ×4 (04:07→20:17)
[2021-01-10] MEDS: Piperacillin/Tazobactam 3.375 GM in 0.9 % Sodium Chloride Mini Bag 100 ML IVPB SCH ×3 (05:04→20:25)
[2021-01-10 07:02] LABS: Calcium 8.7 mg/dL (8.6-10.3); Magnesium 2.1 mg/dL (1.6-2.6); Potassium 4.1 mEq/L (3.5-5.1)
[2021-01-10] MEDS: Furosemide 40 MG TABLET PO SCH ×2 (09:50→20:26)
[2021-01-10] MEDS: *HR* Amiodarone 200 MG TABLET PO SCH ×2 (09:50→20:26)
[2021-01-10] MEDS: Aspirin 81 MG TAB.CHEW PO SCH (09:50)
[2021-01-10] MEDS: Cholecalciferol (D-3) 1,000 UNIT (25MCG) TABLET PO SCH (09:50)
[2021-01-10] MEDS: Isosorbide MONOnitrate (24 HR) 30 MG TAB.ER.24H PO SCH (09:50)
[2021-01-10] MEDS: Doxycycline 100 MG CAPSULE PO SCH ×2 (09:50→20:26)
[2021-01-10] MEDS: Magnesium Oxide 400 MG TABLET PO SCH (09:50)
[2021-01-10] MEDS: Metoprolol XL (24 HR) Succ 50 MG TAB.ER.24H PO SCH ×2 (09:51→20:26)
[2021-01-10] MEDS: Nystatin Cream 15 GM TUBE TP SCH ×2 (09:54→20:28)
[2021-01-10] MEDS: Budesonide Neb 0.25 MG/2 ML IH SCH ×2 (09:55→20:17)
[2021-01-10] MEDS: Insulin DETEMIR 100 UNIT/ML X5UNITS SUBQ SCH ×2 (09:57→20:27)
[2021-01-10] MEDS: Insulin LISPRO 300 UNITS/3 ML VIAL SUBQ SCH ×4 (10:00→20:27)
[2021-01-10 11:13] LABS: Bacteria,Urine Few per hpf (None-Few); Bilirubin,Urine Negative (Negative); Blood,Urine Moderate (Negative); Budding Yeast,Urine Many per hpf (None Seen); Clarity,Urine Ex.Turbid (Clear); Color,Urine Yellow (Yellow); Glucose,Urine (UA) >=1000 mg/dL (Normal); Ketones,Urine Negative (Negative); Leukocyte Esterase,Urine Large (Negative); Nitrite,Urine Negative (Negative); Protein,Urine 50 mg/dL (Neg-Trace); RBC,Urine 15-30 per hpf (0-3); Specific Gravity,Urine 1.016 (1.010-1.025); Urobilinogen,Urine Normal (Normal); WBC,Urine TNTC per hpf (0-3)
[2021-01-10] MEDS: *HR* Rivaroxaban 15 MG TABLET PO SCH (17:50)
[2021-01-11] MEDS: Ipratropium Neb 0.5 MG NEBULIZER IH SCH ×4 (03:44→22:17)
[2021-01-11] MEDS: Piperacillin/Tazobactam 3.375 GM in 0.9 % Sodium Chloride Mini Bag 100 ML IVPB SCH ×3 (05:25→20:17)
[2021-01-11 05:32] LABS: Calcium 8.5 mg/dL (8.6-10.3); Potassium 3.9 mEq/L (3.5-5.1)
[2021-01-11] MEDS: hydrALAZINE 25 MG TABLET PO SCH ×3 (07:53→23:13)
[2021-01-11] MEDS: Metoprolol XL (24 HR) Succ 50 MG TAB.ER.24H PO SCH ×2 (07:53→20:17)
[2021-01-11] MEDS: Aspirin 81 MG TAB.CHEW PO SCH (07:53)
[2021-01-11] MEDS: Furosemide 40 MG TABLET PO SCH ×2 (07:53→20:17)
[2021-01-11] MEDS: Doxycycline 100 MG CAPSULE PO SCH ×2 (07:53→20:17)
[2021-01-11] MEDS: Cholecalciferol (D-3) 1,000 UNIT (25MCG) TABLET PO SCH (07:53)
[2021-01-11] MEDS: Magnesium Oxide 400 MG TABLET PO SCH (07:54)
[2021-01-11] MEDS: Insulin LISPRO 300 UNITS/3 ML VIAL SUBQ SCH ×4 (07:54→20:18)
[2021-01-11] MEDS: *HR* Amiodarone 200 MG TABLET PO SCH ×2 (09:50→20:17)
[2021-01-11] MEDS: Nystatin Cream 15 GM TUBE TP SCH ×2 (09:50→20:19)
[2021-01-11] MEDS: Insulin DETEMIR 100 UNIT/ML X5UNITS SUBQ SCH ×2 (09:50→20:18)
[2021-01-11] MEDS: Isosorbide MONOnitrate (24 HR) 30 MG TAB.ER.24H PO SCH (09:50)
[2021-01-11] MEDS: Budesonide Neb 0.25 MG/2 ML IH SCH ×2 (11:58→22:17)
[2021-01-11] MEDS ORDERED: Neosporin OINT 1 APPL PACKET TP ONE (16:31)
[2021-01-11] MEDS: *HR* Rivaroxaban 15 MG TABLET PO SCH (16:39)
[2021-01-12 03:50] LABS: Calcium 8.6 mg/dL (8.6-10.3); Potassium 3.9 mEq/L (3.5-5.1)
[2021-01-12] MEDS: Ipratropium Neb 0.5 MG NEBULIZER IH SCH ×4 (04:19→20:56)
[2021-01-12] MEDS: Piperacillin/Tazobactam 3.375 GM in 0.9 % Sodium Chloride Mini Bag 100 ML IVPB SCH ×3 (05:15→20:31)
[2021-01-12] MEDS: Aspirin 81 MG TAB.CHEW PO SCH (08:06)
[2021-01-12] MEDS: Cholecalciferol (D-3) 1,000 UNIT (25MCG) TABLET PO SCH (08:06)
[2021-01-12] MEDS: Insulin LISPRO 300 UNITS/3 ML VIAL SUBQ SCH ×4 (08:07→20:35)
[2021-01-12] MEDS: hydrALAZINE 25 MG TABLET PO SCH ×3 (08:07→23:14)
[2021-01-12] MEDS: Metoprolol XL (24 HR) Succ 50 MG TAB.ER.24H PO SCH ×2 (08:07→20:32)
[2021-01-12] MEDS: Furosemide 40 MG TABLET PO SCH ×2 (08:07→20:32)
[2021-01-12] MEDS: Isosorbide MONOnitrate (24 HR) 30 MG TAB.ER.24H PO SCH (08:07)
[2021-01-12] MEDS: Magnesium Oxide 400 MG TABLET PO SCH (08:07)
[2021-01-12] MEDS: Doxycycline 100 MG CAPSULE PO SCH ×2 (08:07→20:32)
[2021-01-12] MEDS: *HR* Amiodarone 200 MG TABLET PO SCH ×2 (08:07→20:32)
[2021-01-12] MEDS: Insulin DETEMIR 100 UNIT/ML X5UNITS SUBQ SCH ×2 (08:07→20:36)
[2021-01-12] MEDS: Budesonide Neb 0.25 MG/2 ML IH SCH ×2 (08:19→20:56)
[2021-01-12] MEDS: Nystatin Cream 15 GM TUBE TP SCH ×2 (08:19→20:37)
[2021-01-12] MEDS: *HR* Rivaroxaban 15 MG TABLET PO SCH (18:29)
[2021-01-12] MEDS: Albumin 25% 25gram/100mL 25 GM/100 ML IV.SOLN IVPB SCH ×2 (18:29→20:30)
[2021-01-12] MEDS: Acetaminophen 325 MG TABLET PO PRN (23:15)
[2021-01-13] MEDS: Ipratropium Neb 0.5 MG NEBULIZER IH SCH ×4 (03:37→21:06)
[2021-01-13] MEDS: Piperacillin/Tazobactam 3.375 GM in 0.9 % Sodium Chloride Mini Bag 100 ML IVPB SCH ×2 (05:04→13:04)
[2021-01-13] MEDS: Isosorbide MONOnitrate (24 HR) 30 MG TAB.ER.24H PO SCH (08:27)
[2021-01-13] MEDS: Aspirin 81 MG TAB.CHEW PO SCH (08:27)
[2021-01-13] MEDS: hydrALAZINE 25 MG TABLET PO SCH ×3 (08:27→23:05)
[2021-01-13] MEDS: Furosemide 40 MG TABLET PO SCH ×2 (08:27→22:59)
[2021-01-13] MEDS: *HR* Amiodarone 200 MG TABLET PO SCH ×2 (08:27→22:59)
[2021-01-13] MEDS: Magnesium Oxide 400 MG TABLET PO SCH (08:27)
[2021-01-13] MEDS: Cholecalciferol (D-3) 1,000 UNIT (25MCG) TABLET PO SCH (08:27)
[2021-01-13] MEDS: Metoprolol XL (24 HR) Succ 50 MG TAB.ER.24H PO SCH ×2 (08:27→22:59)
[2021-01-13] MEDS: Doxycycline 100 MG CAPSULE PO SCH (08:27)
[2021-01-13] MEDS: Albumin 25% 25gram/100mL 25 GM/100 ML IV.SOLN IVPB SCH ×2 (08:28→20:11)
[2021-01-13] MEDS: Insulin DETEMIR 100 UNIT/ML X5UNITS SUBQ SCH ×2 (08:29→22:59)
[2021-01-13] MEDS: Insulin LISPRO 300 UNITS/3 ML VIAL SUBQ SCH ×4 (08:30→23:00)
[2021-01-13] MEDS: Nystatin Cream 15 GM TUBE TP SCH ×2 (08:41→23:00)
[2021-01-13 09:07] LABS: Calcium 8.8 mg/dL (8.6-10.3)
[2021-01-13] MEDS: Budesonide Neb 0.25 MG/2 ML IH SCH ×2 (10:30→21:06)
[2021-01-13] MEDS: *HR* Rivaroxaban 15 MG TABLET PO SCH (18:55)
[2021-01-14] MEDS: Ipratropium Neb 0.5 MG NEBULIZER IH SCH ×4 (04:10→20:27)
[2021-01-14 06:49] LABS: BUN/Creatinine Ratio 15 (6-26); Blood Urea Nitrogen 20 mg/dL (8-23); Calcium 7.1 mg/dL (8.6-10.3); Carbon Dioxide 27 mEq/L (23-29); Chloride 109 mEq/L (98-107); Glucose 60 mg/dL (70-105); Osmolality,Calculated 292 (280-300); Potassium 3.1 mEq/L (3.5-5.1); Sodium 141 mEq/L (136-145); eGFR For African Americans > 60 (> 60); eGFR For Non-African Americans 52 (> 60)
[2021-01-14] MEDS: Furosemide 40 MG TABLET PO SCH ×2 (08:03→20:41)
[2021-01-14] MEDS: hydrALAZINE 25 MG TABLET PO SCH ×2 (08:03→17:35)
[2021-01-14] MEDS: Isosorbide MONOnitrate (24 HR) 30 MG TAB.ER.24H PO SCH (08:03)
[2021-01-14] MEDS: Cholecalciferol (D-3) 1,000 UNIT (25MCG) TABLET PO SCH (08:03)
[2021-01-14] MEDS: *HR* Amiodarone 200 MG TABLET PO SCH ×2 (08:03→20:41)
[2021-01-14] MEDS: Aspirin 81 MG TAB.CHEW PO SCH (08:03)
[2021-01-14] MEDS: Metoprolol XL (24 HR) Succ 50 MG TAB.ER.24H PO SCH ×2 (08:05→20:41)
[2021-01-14] MEDS: Albumin 25% 25gram/100mL 25 GM/100 ML IV.SOLN IVPB SCH ×2 (08:07→20:40)
[2021-01-14] MEDS: Nystatin Cream 15 GM TUBE TP SCH ×2 (08:09→23:48)
[2021-01-14] MEDS: Insulin LISPRO 300 UNITS/3 ML VIAL SUBQ SCH ×4 (08:11→20:41)
[2021-01-14] MEDS: Magnesium Oxide 400 MG TABLET PO SCH (08:13)
[2021-01-14] MEDS: Budesonide Neb 0.25 MG/2 ML IH SCH ×2 (11:07→20:27)
[2021-01-14] MEDS: Insulin DETEMIR 100 UNIT/ML X5UNITS SUBQ SCH ×2 (13:13→20:42)
[2021-01-14] MEDS: *HR* Rivaroxaban 15 MG TABLET PO SCH (17:35)
[2021-01-14] MEDS: Acetaminophen 325 MG TABLET PO PRN (20:41)
[2021-01-15] MEDS ORDERED: Furosemide 20 MG TABLET PO ONE (00:49)
[2021-01-15] MEDS: hydrALAZINE 25 MG TABLET PO SCH (01:10)
[2021-01-15] MEDS ORDERED: Furosemide 40 MG/4 ML VIAL IVP ONE (02:39)
[2021-01-15] MEDS: Ipratropium/Albuterol Neb 3 ML IH SCH ×7 (02:40→23:55)
[2021-01-15] MEDS ORDERED: Furosemide 40 MG/4 ML VIAL ONE (02:40)
[2021-01-15] MEDS ORDERED: methylPREDNISolone 125 MG/2 ML VIAL IVP ONE (02:41)
[2021-01-15 02:44] LABS: ABG Base Excess -4 mEq/L (-2 to 3); ABG HCO3 26 mEq/L (21-27); ABG Oxygen Saturation 78 % (95-98); ABG PCO2 69 mmHg (35-45); ABG PH 7.18 pH Units (7.32-7.45); ABG PO2 54 mmHg (85-104); ABG TCO2 28 mEq/L (20-26)
[2021-01-15] MEDS ORDERED: *HR* Atropine Sulfate 1 MG/10 ML SYRINGE IV ONE (02:59)
[2021-01-15] MEDS ORDERED: Norepinephrine 4 MG/254 ML in 0.9% Sodium Chloride IVC ONE (02:59)
[2021-01-15] MEDS ORDERED: EPINEPHrine 1 MG/ML VIAL IV ONE (02:59)
[2021-01-15] MEDS ORDERED: *HR* EPINEPHrine 1 MG/10 ML SYRINGE IVP ONE ×2 (02:59)
[2021-01-15 03:05] LABS: Basophils % 0.2 %; Eosinophils % 0.2 %; Immature Granulocytes % 1.1 % (0-4)
[2021-01-15 03:07] LABS: Hematocrit 32.7 % (37.5-50.1); Lymphocytes # 3.5 K/mcL (0.6-4.6); Lymphocytes % 21.2 %; Mean Corpuscular HGB Conc 27.5 g/dL (31.6-35.5); Mean Corpuscular Hemoglobin 22.3 pg (28.0-33.3); Mean Corpuscular Volume 81.1 fL (83.0-100.0); Mean Platelet Volume 12.1 fL (9.4-12.4); Monocytes # 1.4 K/mcL (0.0-1.3); Monocytes % 8.2 %; Neutrophils # 11.5 K/mcL (1.6-8.9); Nucleated Red Blood Cells 0.4 /100 WBC (0); Platelet Count 200 K/mcL (140-400); Red Blood Count 4.03 M/mcL (4.19-5.50); Red Cell Distribution Width 17.9 % (11.5-14.5); Segmented Neutrophils % 69.1 %; White Blood Count 16.7 K/mcL (4.3-11.1)
[2021-01-15 03:28] LABS: Albumin 4.3 g/dL (3.5-5.7); Albumin/Globulin Ratio 1.9 (1.1-2.2); Bilirubin,Total 0.7 mg/dL (0.3-1.0); Calcium 9.2 mg/dL (8.6-10.3); Globulin 2.3 g/dL (2.4-3.5); Phosphorous 4.3 mg/dL (2.7-4.5); Potassium 5.6 mEq/L (3.5-5.1); Total Protein 6.6 g/dL (6.4-8.9)
[2021-01-15] MEDS ORDERED: *HR* Dextrose 50 % in Water (Vial) 50 ML VIAL IVP ONE (03:35)
[2021-01-15] MEDS ORDERED: Calcium Gluconate 1gm/50mL 1 GM/50 ML BAG IVPB ONE (03:36)
[2021-01-15] MEDS ORDERED: Insulin Human Regular 10 UNIT in 0.9 % Sodium Chloride 10 ML IV ONE (04:00)
[2021-01-15 04:43] LABS: ABG Base Excess -1 mEq/L (-2 to 3); ABG HCO3 26 mEq/L (21-27); ABG Oxygen Saturation 99 % (95-98); ABG PCO2 58 mmHg (35-45); ABG PH 7.26 pH Units (7.32-7.45); ABG PO2 182 mmHg (85-104); ABG TCO2 28 mEq/L (20-26); Blood Gas VT 500 cc
[2021-01-15 04:57] LABS: Hypochromasia Present (Not Present); Platelet Estimate Normal (Normal)
[2021-01-15 06:07] LABS: Adenovirus Not Detected (Not Detect); Bordetella Pertussis Not Detected (Not Detect); Chlamydophila pneumoniae Not Detected (Not Detect); Coronavirus 229E Not Detected (Not Detect); Coronavirus HKU1 Not Detected (Not Detect); Coronavirus NL63 Not Detected (Not Detect); Coronavirus OC43 Not Detected (Not Detect); Human Metapneumovirus Not Detected (Not Detect); Human Rhinovirus/Enterovirus Not Detected (Not Detect); Influenza A Subtype 2009 H1 Not Detected (Not Detect); Influenza B Not Detected (Not Detect); Mycoplasma pneumoniae Not Detected (Not Detect); Parainfluenza Virus 1 Not Detected (Not Detect); Parainfluenza Virus 2 Not Detected (Not Detect); Parainfluenza Virus 3 Not Detected (Not Detect); Parainfluenza Virus 4 Not Detected (Not Detect); Respiratory Syncytial Virus Not Detected (Not Detect); SARS-CoV-2 Not Detected (Not Detect)
[2021-01-15] MEDS: Budesonide/Formoterol 160/4.5 1 PUFF INH IH SCH ×2 (08:13→20:35)
[2021-01-15] MEDS: Magnesium Oxide 400 MG TABLET PO SCH (08:47)
[2021-01-15] MEDS: Insulin DETEMIR 100 UNIT/ML X5UNITS SUBQ SCH ×2 (08:51→20:14)
[2021-01-15] MEDS: Cholecalciferol (D-3) 1,000 UNIT (25MCG) TABLET PO SCH (08:51)
[2021-01-15] MEDS: Isosorbide MONOnitrate (24 HR) 30 MG TAB.ER.24H PO SCH (08:51)
[2021-01-15] MEDS: *HR* Amiodarone 200 MG TABLET PO SCH ×2 (08:51→20:13)
[2021-01-15] MEDS: Aspirin 81 MG TAB.CHEW PO SCH (08:51)
[2021-01-15] MEDS ORDERED: Furosemide 20 MG/2 ML VIAL IVP SCH (09:00)
[2021-01-15] MEDS: Nystatin Cream 15 GM TUBE TP SCH (09:00)
[2021-01-15] MEDS: Insulin LISPRO 300 UNITS/3 ML VIAL SUBQ SCH ×3 (09:28→18:35)
[2021-01-15] MEDS ORDERED: MethylPREDNISolone 40 MG/ML VIAL IVP SCH ×2 (11:00→21:00)
[2021-01-15] MEDS ORDERED: SODIUM ZIRCONIUM CYCLOSILICATE 5 GM POWD.PACK PO SCH (11:30)
[2021-01-15] MEDS: Albumin 25% 25gram/100mL 25 GM/100 ML IV.SOLN IVPB SCH ×2 (13:09→20:18)
[2021-01-15] MEDS ORDERED: Furosemide 240 MG in 0.9 % Sodium Chloride 96 ML IVC SCH (13:30)
[2021-01-15 18:11] LABS: Basophils % 0.1 %; Lymphocytes % 3.9 %; Monocytes % 1.7 %; Red Cell Distribution Width 17.7 % (11.5-14.5)
[2021-01-15 18:12] LABS: Hematocrit 28.8 % (37.5-50.1); Hemoglobin 8.2 g/dL (12.9-16.9); Immature Granulocytes % 1.6 % (0-4); Lymphocytes # 0.5 K/mcL (0.6-4.6); Mean Corpuscular HGB Conc 28.5 g/dL (31.6-35.5); Mean Corpuscular Hemoglobin 23.1 pg (28.0-33.3); Mean Corpuscular Volume 81.1 fL (83.0-100.0); Mean Platelet Volume 11.8 fL (9.4-12.4); Monocytes # 0.2 K/mcL (0.0-1.3); Nucleated Red Blood Cells 0.3 /100 WBC (0); Platelet Count 175 K/mcL (140-400); Red Blood Count 3.55 M/mcL (4.19-5.50); Segmented Neutrophils % 92.7 %; White Blood Count 12.9 K/mcL (4.3-11.1)
[2021-01-15] MEDS: *HR* Rivaroxaban 15 MG TABLET PO SCH (18:36)
[2021-01-15 18:45] LABS: Complement C3 82 mg/dL (87-200)
[2021-01-15 18:47] LABS: Basophilic Stippling 1+ (Not Present); Large Platelets Present (Not Present)
[2021-01-15 18:48] LABS: Polychromasia 1+ (Not Present); Reactive Lymphocytes Present (Not Present)
[2021-01-15 18:49] LABS: Hypochromasia Present (Not Present)
[2021-01-15 19:00] LABS: Magnesium 1.8 mg/dL (1.6-2.6); Phosphorous 4.3 mg/dL (2.7-4.5); Potassium 4.1 mEq/L (3.5-5.1); Troponin I 0.08 ng/mL (< 0.04)
[2021-01-15 19:06] VITALS: BP 115/72; PULSE 70; TEMP 97.4
[2021-01-15 20:41] VITALS: O2SAT 93
[2021-01-15 21:27] LABS: ABG Base Excess -12 mEq/L (-2 to 3); ABG HCO3 18 mEq/L (21-27); ABG Oxygen Saturation 79 % (95-98); ABG PCO2 63 mmHg (35-45); ABG PH 7.07 pH Units (7.32-7.45); ABG PO2 61 mmHg (85-104); ABG TCO2 20 mEq/L (20-26)
[2021-01-15] MEDS ORDERED: Furosemide 20 MG/2 ML VIAL IVP ONE (21:35)
[2021-01-15 21:39] LABS: Basophils % 0.1 %
[2021-01-15 21:40] LABS: Hemoglobin 8.2 g/dL (12.9-16.9); Immature Granulocytes % 3.2 % (0-4); Lymphocytes # 2.4 K/mcL (0.6-4.6); Lymphocytes % 15.3 %; Mean Corpuscular HGB Conc 26.5 g/dL (31.6-35.5); Mean Corpuscular Hemoglobin 22.2 pg (28.0-33.3); Mean Corpuscular Volume 83.8 fL (83.0-100.0); Mean Platelet Volume 11.7 fL (9.4-12.4); Monocytes % 2.2 %; Nucleated Red Blood Cells 0.8 /100 WBC (0); Platelet Count 183 K/mcL (140-400); Segmented Neutrophils % 79.2 %; White Blood Count 15.6 K/mcL (4.3-11.1)
[2021-01-15] MEDS ORDERED: *HR* Midazolam HCl 2 MG/2 ML VIAL ONE (21:51)
[2021-01-15 21:56] LABS: Monocytes # 0.3 K/mcL (0.0-1.3); Neutrophils # 12.4 K/mcL (1.6-8.9)
[2021-01-15] MEDS ORDERED: Piperacillin/Tazobactam 3.375 GM in 0.9 % Sodium Chloride Mini Bag 100 ML IVPB SCH (22:00)
[2021-01-15 22:01] LABS: Albumin 4.4 g/dL (3.5-5.7); Albumin/Globulin Ratio 2.1 (1.1-2.2); Bilirubin,Total 0.7 mg/dL (0.3-1.0); Calcium 8.8 mg/dL (8.6-10.3); Globulin 2.1 g/dL (2.4-3.5); Magnesium 2.1 mg/dL (1.6-2.6); Phosphorous 6.8 mg/dL (2.7-4.5); Potassium 4.1 mEq/L (3.5-5.1); Total Protein 6.5 g/dL (6.4-8.9); Troponin I 0.09 ng/mL (< 0.04)
[2021-01-15 22:08] LABS: Acanthocytes 1+ (Not Present)
[2021-01-15 22:09] LABS: Basophilic Stippling 1+ (Not Present); Hypochromasia Present (Not Present); Reactive Lymphocytes Present (Not Present)
[2021-01-15] MEDS ORDERED: Artificial Tears SOLN 15 ML BOTTLE BOTH EYES PRN (22:24)
[2021-01-15] MEDS ORDERED: FentaNYL (PF) 1,000 MCG/100 ML IV.SOLN IVC SCH (22:30)
[2021-01-15] MEDS ORDERED: *HR* LORazepam 2 MG/ML VIAL ONE (22:47)
[2021-01-16] MEDS ORDERED: Artificial Tears SOLN 15 ML BOTTLE BOTH EYES SCH
[2021-01-16] MEDS: Ipratropium/Albuterol Neb 3 ML IH SCH (03:54)
[2021-01-16] MEDS ORDERED: Chlorhexidine Rinse 15 ML MOUTHWASH MM SCH (09:00)
[2021-01-16] MEDS ORDERED: Pantoprazole 40 MG VIAL IVP SCH (09:00)
[2021-01-17 23:42] LABS: Lambda Qnt Free Light Chains 21.43 mg/L (5.71-26.30)
[2021-01-18 10:18] LABS: Kappa Qnt Free Light Chains 26.23 mg/L (3.30-19.40)
== END 2021-01-16 03:00 ==
LOC: 2NENU → SUATTDRO 19:17 → 2NNU 01-03 14:32 → 3NENU 01-06 23:59
PROVIDERS: ADMIT Family Medicine; ATTEND Internal Medicine